=== PATIENT | female | born 1990 | race Caucasian/White ===

== ENCOUNTER 2016-10-19 22:46 | Emergency (ER) | payer OTHER ==
--- NOTE | 2016-10-20 04:10 | ED CLINICAL REPORT ---
Clinical Report - Physicians/Mid Levels [facility] [address] [place] [address] 10/19/2016 22:47 Patient: SYLVIA HICKMAN Arrived- By private vehicle. Historian- patient. HISTORY OF PRESENT ILLNESS Chief Complaint: VOMITING. states "I have reflux". This started past few weeks and is still present and worsening. It is not gone now. It has been constant (abrupt). No recent travel. She has had nausea and vomiting. No diarrhea, black stools, bloody stools, abdominal pain or flank pain. No history of possible bad food exposure or known contact with a sick individual. Has not recently been camping or on antibiotics. The illness is described as moderate. (tates she is followed up with a few doctors and havetried antacid medications that have not worked. Patient describes a burning sensation in the epigastrium.). Similar symptoms previously: None. Recent medical care: Not recently seen/assessed. REVIEW OF SYSTEMS No fever, muscle aches, chest pain, difficulty breathing or skin rash. All systems otherwise negative, except as recorded above. PAST HISTORY See nurses notes. Medications: Carafate Oral (Suspension 1 gm/10mL) 1 teaspoon, 4x a day. Zantac 150 Maximum Strength Oral (Tablet 150 mg) 1 tablet, bid. Scopolamine Base Transdermal (Patch 72 Hour 1.5 mg). Ondansetron Oral (Tablet Dispersible 4 mg), as needed. Tums Oral. Allergies: Latex. SOCIAL HISTORY Never smoker. No alcohol use or drug use. Is a local resident. FAMILY HISTORY (No family history of autoimmune disease.). ADDITIONAL NOTES The nursing notes have been reviewed. PHYSICAL EXAM Vital Signs: 10/19/2016 23:32 BP: 123/66. HR: 42. RR: 16. O2 saturation: 100%. Temp: 98.1 F. Pain level now: 9/10. Blood pressure normal. Oxygen saturation normal. Appearance: Alert. Oriented X3. Patient in mild distress. (nontoxic appearance). Eyes: Pupils equal, round and reactive to light. Eyes normal inspection. ENT: Ears normal. Nose normal. Pharynx normal. Neck: Normal inspection. Neck supple. CVS: Normal heart rate and rhythm. Heart sounds normal. Pulses normal. Respiratory: No respiratory distress. Breath sounds normal. No rales, rhonchi or wheezes. Abdomen: Soft and nontender. Bowel sounds normal. No organomegaly. No mass. Back: Normal inspection. Skin: Skin warm and dry. Normal skin color. No rash. Normal skin turgor. Extremities: Extremities exhibit normal ROM. No lower extremity edema. Neuro: Oriented X 3. No motor deficit. No sensory deficit. LABS, X-RAYS, AND EKG EKG: Normal sinus rhythm. Normal P waves. Normal SOFIA. Normal QRS complex. Normal axis. Normal ST and T waves, QT and QTc. The study has been interpreted contemporaneously by me. The study has been independently viewed by me. The EKG appears to be a good tracing. Laboratory Tests: UA-Culture if indicated: (JACKIE: 10/20/2016 00:35) ( [facility] [place]:08[place] Final results Test Result Flag Units (Reference) URINE COLOR YELLOW URINE APPEARANCE CLEAR URINE GLUCOSE NEGATIVE (NEGATIVE) URINE BILIRUBIN NEGATIVE (NEGATIVE) URINE KETONE 1+ (NEGATIVE) URINE SPECIFIC GRAVITY 1.025 (1.010-1.030) URINE PH 7.5 (5.0-8.0) URINE PROTEIN 1+ (NEGATIVE) URINE UROBILINOGEN 0.2 EU/dL (0.2-1.0) URINE NITRITE NEGATIVE (NEGATIVE) URINE BLOOD NEGATIVE (NEGATIVE) URINE LEUK ESTERASE TRACE (NEGATIVE) URINE RBC 0-1 rbc/hpf (0-1) URINE WBC 1-3 wbc/hpf (0-1) URINE EPITHELIAL CELLS 1-3 EPI/hpf (0-5) URINE BACTERIA MODERATE (2+ TO 3+) (NONE SEEN) URINE COMMENT CULTURE INDICATED URINE CULTURES ARE SET-UP BASED ON THE FOLLOWING CRITERIA:POSITIVE NITRITEPOSITIVE LEUKOCYTE ESTERASEGREATER THAN 10 WHITE BLOOD CELLSMODERATE (2+) OR GREATER BACTERIA Urine: (JACKIE: 10/20/2016 00:35) ( [facility] [place] 00:54) Final results Test Result Flag Units (Reference) URINE NEGATIVE CBC w Diff: (JACKIE: 10/20/2016 01:40) ( [facility] 10/20/2016 01:49) Final results Test Result Flag Units (Reference) WHITE BLOOD COUNT 10.0 K/uL (4.5-11.5) RED BLOOD COUNT 4.28 M/uL (4.00-5.20) HEMOGLOBIN 12.4 gm/dL (12.0-16.0) HEMATOCRIT 36.8 % (36.0-46.0) MEAN CELL VOLUME 86 fL (80-100) MEAN CORPUSCULAR HGB 29 pg (26-34) MEAN CORPUSCULAR HGB CONC 34 g/dL (31-37) RED CELL DISTRIBUTION WIDTH 13.2 % (11.6-14.8) PLATELET COUNT 217 K/uL (150-400) NEUTROPHIL % 75.8 H % (50-75) LYMPH % 17.1 L % (25-40) MONO % 6.4 % (3-14) EOSINOPHIL % 0 % (0-4) BASOPHIL % 0.7 % (0-2) Urine Drug Screen: (JACKIE: 10/20/2016 00:35) ( Msg[facility]cvd 10/20/2016 02:41) Final results Test Result Flag Units (Reference) AMPHETAMINE/METHAMPHETAMINE NEGATIVE (NEGATIVE) BARBITURATE NEGATIVE (NEGATIVE) BENZODIAZEPINE NEGATIVE (NEGATIVE) CANNABINOID POSITIVE H (NEGATIVE) COCAINE NEGATIVE (NEGATIVE) ECSTASY NEGATIVE (NEGATIVE) METHADONE NEGATIVE (NEGATIVE) OPIATE NEGATIVE (NEGATIVE) The urine drug screen is a qualitative screening test fordrug overdose and abuse. All screen results should beconsidered as presumptive.Drugs screened for are as follows:BenzodiazepinesCocaineAmphetamines/MetamphetaminesTHC (Tetrahydrocannabinol)OpiatesBarbituratesEcstasyMethadonePositive results are unconfirmed. For confirmation, notifythe lab for the specimen to be sent to the reference lab.All confirmations must be performed by a differentmethodology.The ingestion of natural herbal and plant productscontaining Ephedra/Ephedra metabolites can produce in urineone or more substances capable of cross reacting withamphetamine/methamphetamine immunoassays. These testsprovide a preliminary result only. A more specificalternative chemical method must be used to obtain aconfirmed analytical result. CMP: (JACKIE: 10/20/2016 01:40) ( MsgRcvd 10/20/2016 02:02) Final results Test Result Flag Units (Reference) GLUCOSE 99 mg/dL (70-110) BUN 9 mg/dL (7-18) CREATININE 0.9 mg/dL (0.6-1.3) Estimated GFR >60 mL/min Estimated GFR- >60 mL/min Note: Persistent reduction over 3 months in eGFR<60 mL/min/1.73 m2 defines CKD. Patients with eGFR values>=60 mL/min/1.73 m2 may also have CKD if evidence ofpersistent proteinuria. Additional information may be foundat www.kidney.org. SODIUM 140 mmol/L (136-145) POTASSIUM 3.5 mmol/L (3.5-5.1) CHLORIDE 104 mmol/L (98-107) CARBON DIOXIDE 26 mmol/L (21-32) CALCIUM 8.8 mg/dL (8.5-10.1) TOTAL PROTEIN 6.8 g/dL (6.4-8.2) ALBUMIN 3.9 g/dL (3.3-5.0) BILIRUBIN, TOTAL 0.6 mg/dL (0.0-1.0) ALKALINE PHOSPHATASE 44 L U/L (46-116) AST (SGOT) 16 U/L (15-37) ALT (SGPT) 23 U/L (12-78) LIPASE 92 U/L (73-393) . PROGRESS AND PROCEDURES Course of Care: the patient is a pleasant 26-year-old femalewithself-reported history of reflux. Patient reports that she has been having these symptoms that have not improved withantacid medications. Patient is very adamant that she is having reflux. Patient describes burning sensation in the epigastrium. Patient also reports nausea and vomiting. Patient has tried Zantac as well as pkut-[id number] antacid medications. Patient also describes a tender medicationwhich is likely sucralfate. Patient has a referral to a leadership coach. Patient isconcerned about the symptoms not improving with the medications that she has been prescribed recently. At this time differential diagnosis includespancreatitis, gastritis, reflux,or cardiac arrhythmia EKG was ordered in addition to laboratory studies. Patient is agreeable to treatment plan. We'll reassess after GI cocktails been provided. Patient parts no improvement at all with the GI cocktail. In light of this, further studies were ordered. The patient will be tried on different medication for her discomfort. Patient is agreeable to the treatment and plan. Workup does not show any acute abnormalities. Laboratory studies are unremarkable. EKG does not show any acute conduction abnormalities. Patient reports significant improvement with her discomfort with the morphine. I had long discussion with patient in regards to her symptoms here in the emergency department. Had cited the marijuana as a potential cause for her symptoms in addition to other causes which need to Gastroenterology follow-up. I had discussed the patient not crackers esophagitis, achalasia, or possible inflammatory bowel disease such as Crohn disease. Patient is agreeable to the treatment and plan. Discussed with patient in regards to her workup, diagnosis, home care, follow-up, and return precautions. All questions answered. The patient expressed understanding of these instructions and was agreeable to that. Disposition: Discharged. Condition: good. CLINICAL IMPRESSION Vomiting with nausea (severe). 10/19/2016 23:32 BP: 123/66. HR: 42. RR: 16. O2 saturation: 100%. Temp: 98.1 F. Pain level now: 9/10. Blood pressure normal. Oxygen saturation normal. Atypical chest pain (acute substernal). Mild dehydration (acute). INSTRUCTIONS Warnings: GENERAL WARNINGS: Return or contact your physician immediately if your condition worsens or changes unexpectedly, if not improving as expected, or if other problems arise. SPECIFICALLY, return if you develop pain, fever, vomiting, the inability to keep fluids down, blood in vomitus, blood in diarrhea, fainting or lightheadedness. Your Current Medications: CONTINUE TAKING THE FOLLOWING MEDICATIONS: Carafate Oral : Suspension 1 gm/10mL, 1 teaspoon 4x a day. Ondansetron Oral : Tablet Dispersible 4 mg, prn. Scopolamine Base Transdermal : Patch 72 Hour 1.5 mg. Tums Oral. Zantac 150 Maximum Strength Oral : Tablet 150 mg, 1 tablet bid. Prescription Medications: Zofran ODT 4 mg: take 1 orally every 8 hours as needed for nausea and vomiting. Dispense ten (10). No refill. Substitution is permissible. Percocet 5 mg/325 mg: take 1 tablet orally every 6 hours as needed for pain. Dispense twelve (12). No refill. Substitution is permissible. Follow-up: Return to the emergency department as needed. Follow up with doctor Your primary care doctor and GI (stomach) doctor. Call for the next available appointment. Reason for referral: recheck today's concerns. Summary of care provided to patient. Screening today revealed the patient's blood pressure to be in the normal range. The patient should follow up with a primary care provider for blood pressure management. Understanding of the discharge instructions verbalized by patient. (Electronically signed by Agustín Antony Dr. 10/23/2016 12:28)
--- NOTE | 2016-10-20 04:10 | ED ORDER SUMMARY ---
..... Patient: SYLVIA HICKMAN OrderSheet [facility] VisitID: [id number] [place] [address] 26y, F Registration Date/Time: 10/19/2016 ORDER SHEET Weight: 52.1 kg (stated) Allergies: Latex GENERAL ORDERS: UA-Culture if indicated Urgent (00:10 10/20/2016 Chinyere Gaytan) (Ack 0:14 CHagerty ER Veneer Gluer) (0:36 JQuivey R.N.) Urine Urgent (00:10 10/20/2016 Chinyere Gaytan) (Ack 0:14 CHagerty ER Veneer Gluer) (0:36 JQuivey R.N.) CBC w Diff Urgent (00:42 10/20/2016 Chinyere Gaytan) (Ack 0:47 CHagerty ER Veneer Gluer) (1:42 CFalkner R.N.) CMP Urgent (00:42 10/20/2016 Chinyere Gaytan) (Ack 0:47 CHagerty ER Veneer Gluer) (1:42 CFalkner R.N.) Lipase Urgent (00:42 10/20/2016 Chinyere Gaytan) (Ack 0:47 CHagerty ER Veneer Gluer) (1:42 CFalkner R.N.) Chest 2V Urgent (02:21 10/20/2016 Chinyere Gaytan) (Ack 2:25 CHagerty ER Veneer Gluer) (2:47 GUnger) Urine Drug Screen Urgent (02:23 10/20/2016 Chinyere Gaytan) (Ack 2:25 CHagerty ER Veneer Gluer) (2:48 JQuivey R.N.) EKG - ER Stat (02:23 10/20/2016 Chinyere Gaytan) (Ack 2:25 CHagerty ER Veneer Gluer) (3:25 JQuivey R.N.) MEDICATION ORDERS: GI Cocktail WHITE PO 30 mL (NOW) (00:42 10/20/2016 Chinyere Gaytan) (Ack 1:06 JQuivey R.N.) (1:51 JQuivey R.N.) IV FLUIDS: IV NS : initial bolus 1000 mL (1000 mL/hr), then none - for X1 (NOW) (00:41 10/20/2016 Chinyere Gaytan) (Ack 1:06 JQuivey R.N.) (1:42 CFalkner R.N.) Protonix IVP 40mg 40 mg (Mix in NS 10ml over 2min) (00:42 10/20/2016 Chinyere Gaytan) (Ack 1:06 JQuivey R.N.) (1:54 JQuivey R.N.) Zofran IV 4 mg (NOW) (02:22 10/20/2016 Chinyere Gaytan) (Ack 2:30 JQuivey R.N.) (2:34 JQuivey R.N.) Morphine IV 4 mg (HIGH ALERT MEDICATION, NOW) (02:35 10/20/2016 Chinyere Gaytan) (Ack 2:42 JQuivey R.N.) (2:49 JQuivey R.N.) ORDER SHEET NOTES: [Electronically signed by Tony Davis R.N. (04:23 10/20/2016)] [Electronically signed by Agustín Antony Dr. (12:28 10/23/2016)] [Electronically locked/signed by Tony Davis R.N. (04:23 10/20/2016)]
--- NOTE | 2016-10-20 04:10 | ED ORDER SUMMARY ---
..... Patient: SYLVIA HICKMAN OrderSheet [facility] VisitID: [id number] [place] [address] 26y, F Registration Date/Time: 10/19/2016 ORDER SHEET Weight: 52.1 kg (stated) Allergies: Latex GENERAL ORDERS: UA-Culture if indicated Urgent (00:10 10/20/2016 Chinyere Gaytan) (Ack 0:14 CHagerty ER Chicken Hanger) (0:36 JQuivey R.N.) Urine Urgent (00:10 10/20/2016 Chinyere Gaytan) (Ack 0:14 CHagerty ER Chicken Hanger) (0:36 JQuivey R.N.) CBC w Diff Urgent (00:42 10/20/2016 Chinyere Gaytan) (Ack 0:47 CHagerty ER Chicken Hanger) (1:42 CFalkner R.N.) CMP Urgent (00:42 10/20/2016 Chinyere Gaytan) (Ack 0:47 CHagerty ER Chicken Hanger) (1:42 CFalkner R.N.) Lipase Urgent (00:42 10/20/2016 Chinyere Gaytan) (Ack 0:47 CHagerty ER Chicken Hanger) (1:42 CFalkner R.N.) Chest 2V Urgent (02:21 10/20/2016 Chinyere Gaytan) (Ack 2:25 CHagerty ER Chicken Hanger) (2:47 GUnger) Urine Drug Screen Urgent (02:23 10/20/2016 Chinyere Gaytan) (Ack 2:25 CHagerty ER Chicken Hanger) (2:48 JQuivey R.N.) EKG - ER Stat (02:23 10/20/2016 Chinyere Gaytan) (Ack 2:25 CHagerty ER Chicken Hanger) (3:25 JQuivey R.N.) MEDICATION ORDERS: GI Cocktail WHITE PO 30 mL (NOW) (00:42 10/20/2016 Chinyere Gaytan) (Ack 1:06 JQuivey R.N.) (1:51 JQuivey R.N.) IV FLUIDS: IV NS : initial bolus 1000 mL (1000 mL/hr), then none - for X1 (NOW) (00:41 10/20/2016 Chinyere Gaytan) (Ack 1:06 JQuivey R.N.) (1:42 CFalkner R.N.) Protonix IVP 40mg 40 mg (Mix in NS 10ml over 2min) (00:42 10/20/2016 Chinyere Gaytan) (Ack 1:06 JQuivey R.N.) (1:54 JQuivey R.N.) Zofran IV 4 mg (NOW) (02:22 10/20/2016 Chinyere Gaytan) (Ack 2:30 JQuivey R.N.) (2:34 JQuivey R.N.) Morphine IV 4 mg (HIGH ALERT MEDICATION, NOW) (02:35 10/20/2016 Chinyere Gaytan) (Ack 2:42 JQuivey R.N.) (2:49 JQuivey R.N.) ORDER SHEET NOTES: [Electronically signed by Tony Davis R.N. (04:23 10/20/2016)] [Electronically signed by Agustín Antony Dr. (12:28 10/23/2016)] [Electronically locked/signed by Tony Davis R.N. (04:23 10/20/2016)]
--- NOTE | 2016-10-20 04:10 | ED NURSING NOTES ---
Clinical Report - Nurses [facility] [address] [place] [address] 10/19/2016 22:47 Patient: SYLVIA HICKMAN TRIAGE Triage time 23:33. Acuity: LEVEL 3. Chief Complaint: ABDOMINAL PAIN, NAUSEA and VOMITING. 23:45. --23:45 Patricia Hook R.N. 23:32 10/19/16. BP: 123/66 taken on the left arm, via an automated monitor, while sitting. HR: 42 (regular and strong). RR: 16 (regular, unlabored and normal). O2 saturation: 100% on room air. Temp: 98.1 F (oral). Pain level now: 05/12. --23:45 Patricia Hook R.N. Weight: 52.1 kg stated. Height/Length: 66 inches Per Patient. BMI: 18.5. --23:42 Patricia Hook R.N. Medications Ondansetron Oral (Tablet Dispersible 4 mg), as needed. Tums Oral. --23:40 Patricia Hook R.N. Scopolamine Base Transdermal (Patch 72 Hour 1.5 mg). --23:40 Patricia Hook R.N. Zantac 150 Maximum Strength Oral (Tablet 150 mg) 1 tablet, bid. --23:41 Patricia Hook R.N. Carafate Oral (Suspension 1 gm/10mL) 1 teaspoon, 4x a day. --23:41 Patricia Hook R.N. Allergies Latex. --23:40 Patricia Hook R.N. History Arrived by private vehicle. Historian: patient. Accompanied by spouse. Onset. (5). ( has been too the walk in clinic two different times . Each time got two iv bags and different medications. She got zantac 150 mg bid, Carafate qid several anti nauseas medications. She is not complaining about the nausea so much but the heart burn that is making her vomit. Has not been able to sleep for several days). She has had nausea and vomiting. Last oral intake by patient was (1/2 hours ago). PAST MEDICAL HX: Immunizations: up-to-date. Last normal menstrual period- Oct 12 2016. SOCIAL HX: Never smoker. History of drug use: marijuana. No alcohol use. FALL RISK ASSESSMENT: Fall risk assessment completed. No fall risk identified. NUTRITIONAL RISK ASSESSMENT: The nutritional risk assessment revealed no deficiencies. FUNCTIONAL ASSESSMENT: Functional assessment: no impairments noted. LEARNING NEEDS ASSESSMENT: The learning needs assessment revealed no barriers. SKIN INTEGRITY ASSESSMENT: Skin integrity risk assessment completed. No skin integrity risk identified. --23:45 Patricia Hook R.N. ADDITIONAL SURGERIES: Tubal Ligation. --23:41 Patricai Hook R.N. Interventions ID band on patient. --23:45 Patricia Hook R.N. PHYSICAL ASSESSMENT 23:58. Ambulatory to room. GENERAL / NEURO / PSYCH: Alert. Oriented X 4. HEENT: Mucous membranes are pink. RESPIRATORY: Respirations not labored. SKIN: Skin is warm and dry. --23:58 Tony Davis R.N. NURSING PROGRESS NOTES 23:58. Head of bed elevated. Two patient identifiers checked. Call light placed in reach. Bed placed in lowest position. Brakes of bed on. Patient ready for evaluation- chart flagged. --23:58 Tony Davis R.N. 00:28 Patient to restroom to provide urine sample. --00:28 Tony Davis R.N. 00:35. Patient ID band checked for patient name and birthdate: patient confirmed. Clean catch urine collected with return of yellow-colored clear urine; sample sent to lab for urinalysis. Specimen labeled in the presence of the patient. --00:36 Tony Davis R.N. 01:41 10/20/2016 Site #1 started via IV in the right antecubital space with an 20g angiocath using a topical anesthetic, with aseptic technique and good blood return; one attempt. Blood drawn: rainbow set. Labeled in the presence of the patient and sent to the lab. Saline lock flushed with 10 mL saline. --01:42 Patricia Hook R.N. 01:42 10/20/2016 Started bag #1 1000 mL IV Fluids IV NS (Saline); at 1000 mL/hr via site #1. IV patency established. IV site checked: no pain, redness, or swelling. IV flushed thoroughly pre- and post-medication administration. Completed per protocol. --01:42 Patricia Hook R.N. 01:51 10/20/2016 GI COCKTAIL WHITE (Simethicone) PO 30 mL given. Allergies verified and confirmed 5 rights. --01:51 Tony Davis R.N. 01:52 10/20/2016 PROTONIX (Pantoprazole Sodium) IVP 40 mg given over 2 minute(s) via site #1. Allergies verified and confirmed 5 rights. IV patency established. IV site checked: no pain, redness, or swelling. IV flushed thoroughly pre- and post-medication administration. --01:54 Tony Davis R.N. 02:31 10/20/2016 Zofran (Ondansetron HCl) IVP 4 mg given over 2 minute(s) via site #1. Allergies verified and confirmed 5 rights. IV patency established. IV site checked: no pain, redness, or swelling. IV flushed thoroughly pre- and post-medication administration. --02:34 Tony Davsi R.NGage 02:44. Patient transported to radiology by stretcher with tech. --02:44 Tony Davis R.N. 02:45 10/20/2016 Morphine IVP 4 mg given over 2 minute(s) via site #1. Allergies verified, confirmed 5 rights and sedative warning given to the patient and patient's family. IV patency established. IV site checked: no pain, redness, or swelling. IV flushed thoroughly pre- and post-medication administration. --02:49 Tony Davis R.NGage 02:45. Patient returned from radiology by stretcher with tech. --02:49 Tony Davis R.NGage 02:49. Pulse oximeter and NIBP monitor placed on patient; monitor alarms on. --02:50 Tony Davis R.N. 02:46 10/20/2016 IV Fluids IV NS Discontinued: bag #1. Total amount infused: 1000 mL. IV patency established. IV site checked: no pain, redness, or swelling. IV flushed thoroughly. --02:53 Tony Davis R.N. EKG time: (0257 AM). EKG was ordered, performed by a tech and shown to the ED physician. --03:01 Patricia Hook R.N. 04:18. The patient is calm and resting quietly. Overall patient status is improved- she states feels better. SKIN: Skin is warm and dry. Skin color within normal limits. --04:23 Tony Davis R.N. DISPOSITION / DISCHARGE 04:17 10/20/2016 Site #1 removed upon discharge. Catheter intact. Bandage applied. --04:22 Tony Davis R.N. Departure time: 04:21. Condition at departure: stable. No learning barriers present. Discharge instructions provided and reviewed with the patient. Reviewed medication(s) side effects, precautions, dosing and course information. Prescription(s) given to the patient. Patient verbalized understanding. Written instructions provided in Swedish. The patient was discharged home and accompanied by spouse. She left the Emergency Department ambulatory and via private vehicle. Spouse driving. FALL RISK ASSESSMENT: Fall risk assessment completed. No fall risk identified. --04:22 Tony Davis R.N. 04:16 10/20/16. BP: 120/72. HR: 52. RR: 16. O2 saturation: 99% on room air. Pain level now: 12/10. --04:22 Tony Davis R.N. Locked/Released at 10/20/2016 4:23 by Tony Davis R.N.
--- NOTE | 2016-10-20 08:58 | DIAGNOSTIC IMAGING REPORT ---
PROCEDURE: XR CHEST 2 VIEW INDICATION: BURNING CHEST DISCOMFORT WORSE WITH GI COCKTAIL TECHNIQUE: PA and lateral view. COMPARISON: None. FINDINGS: Lungs are clear. Cardiovascular structures are normal. Bony thorax is unremarkable. IMPRESSION: 1. Negative chest.
--- NOTE | 2016-10-23 12:29 | ED DISCHARGE INSTRUCTIONS ---
Patient: SYLVIA HICKMAN General Instructions [facility] VisitID: [id number] [place] [address] 26y, F Registration Date/Time: 10/19/2016 Vomiting with nausea (severe). 10/19/2016 23:32 BP: 123/66. HR: 42. RR: 16. O2 saturation: 100%. Temp: 98.1 F. Pain level now: 10. Blood pressure normal. Oxygen saturation normal. Atypical chest pain (acute substernal). Mild dehydration (acute). INSTRUCTIONS Warnings: GENERAL WARNINGS: Return or contact your physician immediately if your condition worsens or changes unexpectedly, if not improving as expected, or if other problems arise. SPECIFICALLY, return if you develop pain, fever, vomiting, the inability to keep fluids down, blood in vomitus, blood in diarrhea, fainting or lightheadedness. Your Current Medications: CONTINUE TAKING THE FOLLOWING MEDICATIONS: Carafate Oral : Suspension 1 gm/10mL, 1 teaspoon 4x a day. Ondansetron Oral : Tablet Dispersible 4 mg, prn. Scopolamine Base Transdermal : Patch 72 Hour 1.5 mg. Tums Oral. Zantac 150 Maximum Strength Oral : Tablet 150 mg, 1 tablet bid. Prescription Medications: Zofran ODT 4 mg: take 1 orally every 8 hours as needed for nausea and vomiting. Dispense ten (10). No refill. Substitution is permissible. Percocet 5 mg/325 mg: take 1 tablet orally every 6 hours as needed for pain. Dispense twelve (12). No refill. Substitution is permissible. Follow-up: Return to the emergency department as needed. Follow up with doctor Your primary care doctor and GI (stomach) doctor. Call for the next available appointment. Reason for referral: recheck today's concerns. Summary of care provided to patient. Screening today revealed the patient's blood pressure to be in the normal range. The patient should follow up with a primary care provider for blood pressure management. Understanding of the discharge instructions verbalized by patient. ADDITIONAL INFORMATION Vomiting [6Yr-Adult] Vomiting is a common symptom that may be due to different causes. These include gastroenteritis ("stomach flu"), food poisoning and gastritis. There are other more serious causes of vomiting which may be hard to diagnose early in the illness. Therefore, it is important to watch for the warning signs listed below. The main danger from repeated vomiting is dehydration. This is due to excess loss of water and minerals from the body. When this occurs, body fluids must be replaced. Home Care: If symptoms are severe, rest at home for the next 24 hours. You may use acetaminophen (Tylenol) or ibuprofen (Motrin, Advil) to control fever, unless another medicine was prescribed. [NOTE : If you have chronic liver or kidney disease or ever had a stomach ulcer or GI bleeding, talk with your doctor before using these medicines.] (Aspirin should never be used in anyone under 18 years of age who is ill with a fever. It may cause severe liver damage.) Avoid tobacco and alcohol use, which may worsen your symptoms. If medicines for vomiting were prescribed, take as directed. Once vomiting stops, then follow these guidelines: During The First 12-24 Hours follow the diet below: FRUIT JUICES: Apple, grape juice, clear fruit drinks, and electrolyte replacement drinks. BEVERAGES: Soft drinks without caffeine; mineral water (plain or flavored), decaffeinated tea and coffee. SOUPS: Clear broth, consomm and bouillon DESSERTS: Plain gelatin, popsicles and fruit juice bars. As you feel better, you may add 6-8 ounces of yogurt per day. During The Next 24 Hours you may add the following to the above: Hot cereal, plain toast, bread, rolls, crackers Plain noodles, rice, mashed potatoes, chicken noodle or rice soup Unsweetened canned fruit (avoid pineapple), bananas Limit caffeine and chocolate. No spices or seasonings except salt. During The Next 24 Hours Gradually resume a normal diet, as you feel better and your symptoms lessen. Follow Up with your doctor as advised if you are not improving over the next 2-3 days. Get Prompt Medical Attention if any of the following occur: Constant right-sided lower abdominal pain or increasing general abdominal pain Continued vomiting (unable to keep liquids down) for 24 hours Frequent diarrhea (more than 5 times a day); blood (red or black color) or mucus in diarrhea Reduced urine output or extreme thirst Weakness, dizziness or fainting Unusually drowsy or confused Fever of 100.4F (38C) oral or higher, not better with fever medication Yellow color of the eyes or skin Chest Pain, Uncertain Cause Chest pain can happen for a number of reasons. Sometimes the cause can not be determined. If yourcondition does not seem serious, and your pain does not appear to be coming from your heart, your doctor may recommend watching it closely. Sometimes the signs of a serious problem take more time to appear. Therefore, watch for the warning signs listed below. Home care After your visit, follow these recommendations: Rest today and avoid strenuous activity. Take any prescribed medicine as directed. Follow-up care Follow up with your doctor or this facility as instructed or if you do not start to feel better within 24 hours. Call 911 Get immediate medical attention if any of the following occur: A change in the type of pain: if it feels different, becomes more severe, lasts longer, or begins to spread into your shoulder, arm, neck, jaw or back Shortness of breath or increased pain with breathing Weakness, dizziness, or fainting Rapid heart beat Get prompt medical attention Call your doctor right away if any of the following occur: Cough with dark colored sputum (phlegm) or blood Fever of 100.4F(38C) or higher, or as directed by your health care provider Swelling, pain or redness in one leg Dehydration (Adult) Dehydration occurs when your body loses too much fluid. This may be the result of vomiting a lot or from diarrhea,sweating a lot, or a high fever. It may also happen if you dont drink enough fluid when youre sick. Misuse of diuretics (water pills) can also be a cause. Symptoms include thirst and feeling dizzy, weak, fatigued, or very drowsy. The diet described below is usually enough to treat most cases. Sometimes you may needmedicine. Home Care Follow these guidelines for home care: Drink at least 12 8-ounce glasses of fluid every day to overcome the dehydration. Fluid may include water; orange juice; lemonade; apple, grape, and cranberry juice; clear fruit drinks; electrolyte replacement and sports drinks; and teas and coffee without caffeine. If you have been diagnosed with a kidney disease, ask your doctor how much and what types of fluids you should drink to prevent dehydration. If you have kidney disease, drinking too much fluid can cause it build up in the your body and be dangerous to your health. If you have fever, muscle aching, or headache from a viral syndrome, you may useacetaminophen or ibuprofen, unless another medicine was prescribed for this.If you have chronic liver or kidney disease or ever had a stomach ulcer or GI bleeding, talk with your doctor before using these medicines. Don't take aspirin if you are younger than 18 and are ill with a fever.Aspirin raises the chance forsevere liver injury. Follow-up care Follow up with your health care provider if you don't get better in the next 24 to 48 hours. When to seek medical care Get prompt medical attention if any of theseoccur: Continued vomiting (cant keep liquids down) Frequent diarrhea (more than 5 times a day); blood (red or black color) or mucus in diarrhea Blood in vomit or stool Swollen abdomen or increasing abdominal pain Weakness, dizziness, or fainting Unusually drowsy or confused Reduced urine output or extreme thirst Fever of 100.4 F (38 C) oral or higher that does not get better with fever medication Ondansetron Oral disintegrating tablet What is this medicine? ONDANSETRON (on KATERIN se demetri) is used to treat nausea and vomiting caused by chemotherapy. It is also used to prevent or treat nausea and vomiting after surgery. How should I use this medicine? These tablets are made to dissolve in the mouth. Do not try to push the tablet through the foil backing. With dry hands, peel away the foil backing and gently remove the tablet. Place the tablet in the mouth and allow it to dissolve, then swallow. While you may take these tablets with water, it is not necessary to do so. Talk to your client service manager regarding the use of this medicine in children. Special care may be needed. What side effects may I notice from receiving this medicine? Side effects that you should report to your doctor or health care information associate as soon as possible: allergic reactions like skin rash, itching or hives, swelling of the face, lips, or tongue breathing problems dizziness fast or irregular heartbeat feeling faint or lightheaded, falls fever and chills swelling of the hands and feet tightness in the chest Side effects that usually do not require medical attention (report to your doctor or health care information associate if they continue or are bothersome): constipation or diarrhea headache What may interact with this medicine? Do not take this medicine with any of the following medications: -apomorphine -cisapride -dofetilide -dronedarone -pimozide -thioridazine -ziprasidone This medicine may also interact with the following medications: -carbamazepine -phenytoin -rifampicin -tramadol -other medicines that prolong the QT interval (cause an abnormal heart rhythm) What if I miss a dose? If you miss a dose, take it as soon as you can. If it is almost time for your next dose, take only that dose. Do not take double or extra doses. Where should I keep my medicine? Keep out of the reach of children. Store between 2 and 30 degrees C (36 and 86 degrees F). Throw away any unused medicine after the expiration date. What should I tell my health care provider before I take this medicine? They need to know if you have any of these conditions: heart disease history of irregular heartbeat liver disease low levels of magnesium or potassium in the blood an unusual or allergic reaction to ondansetron, granisetron, other medicines, foods, dyes, or preservatives or trying to get breast-feeding What should I watch for while using this medicine? Check with your doctor or health care information associate as soon as you can if you have any sign of an allergic reaction. Oxycodone Hydrochloride, Acetaminophen Oral tablet What is this medicine? ACETAMINOPHEN; OXYCODONE (a set a LOLA mary fen; ox i KOE done) is a pain reliever. It is used to treat mild to moderate pain. How should I use this medicine? Take this medicine by mouth with a full glass of water. Follow the directions on the prescription label. Take your medicine at regular intervals. Do not take your medicine more often than directed. Talk to your client service manager regarding the use of this medicine in children. Special care may be needed. Patients over 65 years old may have a stronger reaction and need a smaller dose. What side effects may I notice from receiving this medicine? Side effects that you should report to your doctor or health care information associate as soon as possible: allergic reactions like skin rash, itching or hives, swelling of the face, lips, or tongue breathing difficulties, wheezing confusion light headedness or fainting spells severe stomach pain yellowing of the skin or the whites of the eyes Side effects that usually do not require medical attention (report to your doctor or health care information associate if they continue or are bothersome): dizziness drowsiness nausea vomiting What may interact with this medicine? alcohol antihistamines barbiturates like amobarbital, butalbital, butabarbital, methohexital, pentobarbital, phenobarbital, thiopental, and secobarbital benztropine drugs for bladder problems like solifenacin, trospium, oxybutynin, tolterodine, hyoscyamine, and methscopolamine drugs for breathing problems like ipratropium and tiotropium drugs for certain stomach or intestine problems like propantheline, homatropine methylbromide, glycopyrrolate, atropine, belladonna, and dicyclomine general anesthetics like etomidate, ketamine, nitrous oxide, propofol, desflurane, enflurane, halothane, isoflurane, and sevoflurane medicines for depression, anxiety, or psychotic disturbances medicines for sleep muscle relaxants naltrexone narcotic medicines (opiates) for pain phenothiazines like perphenazine, thioridazine, chlorpromazine, mesoridazine, fluphenazine, prochlorperazine, promazine, and trifluoperazine scopolamine tramadol trihexyphenidyl What if I miss a dose? If you miss a dose, take it as soon as you can. If it is almost time for your next dose, take only that dose. Do not take double or extra doses. Where should I keep my medicine? Keep out of the reach of children. This medicine can be abused. Keep your medicine in a safe place to protect it from theft. Do not share this medicine with anyone. Selling or giving away this medicine is dangerous and against the law. Store at room temperature between 20 and 25 degrees C (68 and 77 degrees F). Keep container tightly closed. Protect from light. This medicine may cause accidental overdose and if it is taken by other adults, children, or pets. Flush any unused medicine down the toilet to reduce the chance of harm. Do not use the medicine after the expiration date. What should I tell my health care provider before I take this medicine? They need to know if you have any of these conditions: brain tumor Crohn's disease, inflammatory bowel disease, or ulcerative colitis drink more than 3 alcohol containing drinks per day drug abuse or addiction head injury heart or circulation problems kidney disease or problems going to the bathroom liver disease lung disease, asthma, or breathing problems an unusual or allergic reaction to acetaminophen, oxycodone, other opioid analgesics, other medicines, foods, dyes, or preservatives or trying to get breast-feeding What should I watch for while using this medicine? Tell your doctor or health care information associate if your pain does not go away, if it gets worse, or if you have new or a different type of pain. You may develop tolerance to the medicine. Tolerance means that you will need a higher dose of the medication for pain relief. Tolerance is normal and is expected if you take this medicine for a long time. Do not suddenly stop taking your medicine because you may develop a severe reaction. Your body becomes used to the medicine. This does NOT mean you are addicted. Addiction is a behavior related to getting and using a drug for a non-medical reason. If you have pain, you have a medical reason to take pain medicine. Your doctor will tell you how much medicine to take. If your doctor wants you to stop the medicine, the dose will be slowly lowered over time to avoid any side effects. You may get drowsy or dizzy. Do not drive, use machinery, or do anything that needs mental alertness until you know how this medicine affects you. Do not stand or sit up quickly, especially if you are an older patient. This reduces the risk of dizzy or fainting spells. Alcohol may interfere with the effect of this medicine. Avoid alcoholic drinks. There are different types of narcotic medicines (opiates) for pain. If you take more than one type at the same time, you may have more side effects. Give your health care provider a list of all medicines you use. Your doctor will tell you how much medicine to take. Do not take more medicine than directed. Call emergency for help if you have problems breathing. The medicine will cause constipation. Try to have a bowel movement at least every 2 to 3 days. If you do not have a bowel movement for 3 days, call your doctor or health care information associate. Do not take Tylenol (acetaminophen) or medicines that have acetaminophen with this medicine. Too much acetaminophen can be very dangerous. Many nonprescription medicines contain acetaminophen. Always read the labels carefully to avoid taking more acetaminophen. You have been given the following additional information: Vomiting (6Y-Adult) Chest Pain, Uncertain Cause Dehydration (Adult) Ondansetron Oral disintegrating tablet Oxycodone Hydrochloride, Acetaminophen Oral tablet (Electronically signed by Agustín Antony Dr. 10/23/2016 12:28)
--- NOTE | 2016-10-23 12:29 | ED MAR SUMMARY ---
..... Medication Administration Record [facility] [address] [place] [address] Patient: SYLVIA HICKMAN Visit ID: [id number] 26y, F Weight: 52.1 kg Height/Length: 66 in BMI: 18.5 ALLERGIES: Latex Start 01:42 10/20/2016 Patricia Hook R.N., Stop 02:46 10/20/2016 Tony Davis R.N. Medication Administered: IV NS (SALINE), Dose: IV Fluids, Rate: 1000 mL/hr, Dispensed: 1000 mL bag, Site: #1 right AC. Medication Ordered: IV NS : initial bolus 1000 mL (1000 mL/hr), then none - for X1 (NOW). Given 01:51 10/20/2016 Tony Davis R.N. Medication Administered: GI COCKTAIL WHITE [PO] (SIMETHICONE), Dose: 30 mL PO. Medication Ordered: GI Cocktail WHITE PO 30 mL (NOW). Given 01:52 10/20/2016 Tony Davis R.N. Medication Administered: PROTONIX [IVP] (PANTOPRAZOLE SODIUM), Dose: 40 mg IVP over 2 minute(s), Site: #1 right AC. Medication Ordered: Protonix IVP 40mg 40 mg (Mix in NS 10ml over 2min). Given 02:31 10/20/2016 Tony Davis R.N. Medication Administered: ZOFRAN [IVP] (ONDANSETRON HCL), Dose: 4 mg IVP over 2 minute(s), Site: #1 right AC. Medication Ordered: Zofran IV 4 mg (NOW). Given 02:45 10/20/2016 Tony Davis R.N. Medication Administered: MORPHINE [IVP], Dose: 4 mg IVP over 2 minute(s), Site: #1 right AC. Medication Ordered: Morphine IV 4 mg (HIGH ALERT MEDICATION, NOW).
--- NOTE | 2016-10-23 12:29 | ED MAR SUMMARY ---
..... Medication Administration Record [facility] [address] [place] [address] Patient: SYLVIA HICKMAN Visit ID: [id number] 26y, F Weight: 52.1 kg Height/Length: 66 in BMI: 18.5 ALLERGIES: Latex Start 01:42 10/20/2016 Patricia Hook R.N., Stop 02:46 10/20/2016 Tony Davis R.N. Medication Administered: IV NS (SALINE), Dose: IV Fluids, Rate: 1000 mL/hr, Dispensed: 1000 mL bag, Site: #1 right AC. Medication Ordered: IV NS : initial bolus 1000 mL (1000 mL/hr), then none - for X1 (NOW). Given 01:51 10/20/2016 Tony Davis R.N. Medication Administered: GI COCKTAIL WHITE [PO] (SIMETHICONE), Dose: 30 mL PO. Medication Ordered: GI Cocktail WHITE PO 30 mL (NOW). Given 01:52 10/20/2016 Tony Davis R.N. Medication Administered: PROTONIX [IVP] (PANTOPRAZOLE SODIUM), Dose: 40 mg IVP over 2 minute(s), Site: #1 right AC. Medication Ordered: Protonix IVP 40mg 40 mg (Mix in NS 10ml over 2min). Given 02:31 10/20/2016 Tony Davis R.N. Medication Administered: ZOFRAN [IVP] (ONDANSETRON HCL), Dose: 4 mg IVP over 2 minute(s), Site: #1 right AC. Medication Ordered: Zofran IV 4 mg (NOW). Given 02:45 10/20/2016 Tony Davis R.N. Medication Administered: MORPHINE [IVP], Dose: 4 mg IVP over 2 minute(s), Site: #1 right AC. Medication Ordered: Morphine IV 4 mg (HIGH ALERT MEDICATION, NOW).
--- NOTE | 2016-10-23 12:29 | ED MED RECONCILIATION SUMMARY ---
Patient: SYLVIA HICKMAN Medication Reconciliation Report [facility] VisitID: [id number] [address] [place] [address] 26y, F Registration Date/Time: 10/19/2016 Weight: 52.1 kg Height/Length: 66 in. BMI: 18.5 ALLERGIES: Latex The patient's Home Medications are listed below: CONTINUE TAKING THE FOLLOWING MEDICATIONS: Carafate Oral (1 gm/10mL) 1 teaspoon, 4x a day Ondansetron Oral (4 mg) Scopolamine Base Transdermal (1.5 mg) Tums Oral Zantac 150 Maximum Strength Oral (150 mg) 1 tablet, bid The source(s) of the original Home Medication information: Not obtained. The following Medications were given to the patient in the Emergency Department: IV NS IV Fluids bolus 0, then 1000 mL/hr, administered: 10/20/2016 1:42:00 AM GI COCKTAIL WHITE [PO] PO 30 mL, administered: 10/20/2016 1:51:00 AM PROTONIX [IVP] IVP 40 mg, administered: 10/20/2016 1:52:00 AM Zofran [IVP] IVP 4 mg, administered: 10/20/2016 2:31:00 AM Morphine [IVP] IVP 4 mg, administered: 10/20/2016 2:45:00 AM The following Medications were prescribed to the patient: Zofran ODT 4 mg: take 1 orally every 8 hours as needed for nausea and vomiting. Dispense ten (10). No refill. Substitution is permissible. -- Agustín Antony Dr. Percocet 5 mg/325 mg: take 1 tablet orally every 6 hours as needed for pain. Dispense twelve (12). No refill. Substitution is permissible. -- Agustín Antony Dr.
--- NOTE | 2016-10-23 12:29 | ED MED RECONCILIATION SUMMARY ---
Patient: SYLVIA HICKMAN Medication Reconciliation Report [facility] VisitID: [id number] [address] [place] [address] 26y, F Registration Date/Time: 10/19/2016 Weight: 52.1 kg Height/Length: 66 in. BMI: 18.5 ALLERGIES: Latex The patient's Home Medications are listed below: CONTINUE TAKING THE FOLLOWING MEDICATIONS: Carafate Oral (1 gm/10mL) 1 teaspoon, 4x a day Ondansetron Oral (4 mg) Scopolamine Base Transdermal (1.5 mg) Tums Oral Zantac 150 Maximum Strength Oral (150 mg) 1 tablet, bid The source(s) of the original Home Medication information: Not obtained. The following Medications were given to the patient in the Emergency Department: IV NS IV Fluids bolus 0, then 1000 mL/hr, administered: 10/20/2016 1:42:00 AM GI COCKTAIL WHITE [PO] PO 30 mL, administered: 10/20/2016 1:51:00 AM PROTONIX [IVP] IVP 40 mg, administered: 10/20/2016 1:52:00 AM Zofran [IVP] IVP 4 mg, administered: 10/20/2016 2:31:00 AM Morphine [IVP] IVP 4 mg, administered: 10/20/2016 2:45:00 AM The following Medications were prescribed to the patient: Zofran ODT 4 mg: take 1 orally every 8 hours as needed for nausea and vomiting. Dispense ten (10). No refill. Substitution is permissible. -- Agustín Antony Dr. Percocet 5 mg/325 mg: take 1 tablet orally every 6 hours as needed for pain. Dispense twelve (12). No refill. Substitution is permissible. -- Agustín Antony Dr.
== END 2016-10-20 04:21 | disposition home or self-care (01) ==
LOC: ED SRH 22:46
DX: R07.89 Other chest pain (principal); E86.0 Dehydration; R11.10 Vomiting, unspecified; Z91.040 Latex allergy status
CPT/HCPCS: 90004; 90100; 90469; 92235; 92760; 92761; 92762; 92763; 92764; 92765; 92766; 92767; 93070; 95059